=== PATIENT | female | born 1985 ===

== ENCOUNTER 2016-06-24 11:28 | Emergency (ER) | payer MEDICAID, OTHER ==
[2016-06-24 11:51] VITALS: BMI 39.3
[2016-06-24 11:57] VITALS: BP 119/73; PULSE 73; RESP 16; TEMP 98.1; O2SAT 98
--- NOTE | 2016-06-24 12:49 | ED PDOC ---
Arrival/HPI - General Chief Complaint: ENT Problem Time Seen by Provider: 06/24/16 12:46 Historian: Patient - History of Present Illness Narrative History of Present Illness (Text): 06/24/16 13:48 30-year-old female presents today with a 3 to four-day history of sore throat. Patient states she's noticed a white thing on her right tonsil. She is complaining of frontal sinus headache. Patient states that she had taken some antibiotics at home that she had left over. But stopped taking them after 3 days. Patient complaining of subjective fevers at home. Patient states she was taking Motrin for pain last dose was Advil yesterday. No medications taken today for pain or fever. Patient denies vomiting or diarrhea. Denies abdominal pain. Denies cough. Complaining of nasal congestion. Denies ear pain. pt states her son is sick as well. Past Medical History - Provider Review Nursing Documentation Reviewed: Yes - Travel History Have you recently traveled outside [place] w/in the past 3 mons?: No - Tetanus Immunization Tetanus Immunization: Unknown - Cardiac Hx Cardiac Disorders: No - Pulmonary Hx Respiratory Disorders: No - Neurological Hx Neurological Disorder: No - HEENT Hx HEENT Disorder: No - Renal Hx Renal Disorder: No - Endocrine/Metabolic Hx Endocrine Disorders: Yes Hx Hypothyroidism: Yes - Hematological/Oncological Hx Blood Disorders: No - Integumentary Hx Dermatological Disorder: No - Musculoskeletal/Rheumatological Hx Musculoskeletal Disorders: No - Gastrointestinal Hx Gastrointestinal Disorders: No - Genitourinary/Gynecological Hx Genitourinary Disorders: No - Psychiatric Hx Psychophysiologic Disorder: No Hx Substance Use: No Family/Social History - Physician Review Nursing Documentation Reviewed: Yes Family/Social History: Unknown Family HX Smoking Status: Never Smoked Hx Alcohol Use: No Hx Substance Use: No Allergies/Home Meds Allergies/Adverse Reactions: Allergies No Known Allergies Allergy (Verified 06/24/16 11:51) Review of Systems - Review of Systems Constitutional: Fevers. absent: Fatigue ENT: Sore Throat, Sinus Congestion Respiratory: absent: SOB, Cough Cardiovascular: absent: Chest Pain, Palpitations Gastrointestinal: absent: Abdominal Pain, Diarrhea, Vomiting Musculoskeletal: absent: Arthralgias Neurological: Headache. absent: Dizziness Physical Exam Vital Signs Reviewed: Yes Vital Signs Temp Pulse Resp BP Pulse Ox 06/24/16 11:57 98.1 F 73 16 119/73 98 Temperature: Afebrile Blood Pressure: Normal Pulse: Regular Respiratory Rate: Normal Appearance: Positive for: Well-Appearing, Non-Toxic, Comfortable Pain Distress: None Mental Status: Positive for: Alert and Oriented X 3 - Systems Exam Head: Present: Atraumatic Conjunctiva: Present: Normal Ears: Present: Normal, NORMAL TM. No: Erythema Mouth: Present: Moist Mucous Membranes Pharnyx: Present: ERYTHEMA, EXUDATE. No: TONSILS ENLARGED, Peritonsilar Swelling, Uvular Deviation, Muffled/Hoarse Voice, Strider, Soft Palate/Uvular Edema Nose (External): Present: Atraumatic Nose (Internal): Present: Normal Inspection Neck: Present: Normal Range of Motion, Lymphadenopathy, Trachea Midline Respiratory/Chest: Present: Clear to Auscultation, Good Air Exchange. No: Respiratory Distress, Accessory Muscle Use Cardiovascular: Present: Regular Rate and Rhythm, Normal S1, S2. No: Murmurs Abdomen: No: Tenderness Neurological: Present: GCS=15 Skin: Present: Warm, Dry, Normal Color. No: Rashes Psychiatric: Present: Alert Medical Decision Making ED Course and Treatment: 06/24/16 13:50 Patient is nontoxic well appearing in no distress. Vital signs are stable Tolerating p.o. fluids and solids motrin amoxicillin po Patient reassessment: Patient feeling better after medications, vital signs stable. Moist mucous membranes. I advised follow up with primary care physician within the next 2 days, advised to increase fluids take medications as prescribed and return if symptoms worsen persist or if new symptoms develop Patient verbalizes understanding of discharge instructions and need for immediate followup. all aspects of this case were discussed the attending of record. IMPRESSION; pharyngitis Motrin every 6 hours as needed for pain/fever reduction Increase fluids amoxicillin 3 times daily x10 days Follow up primary care physician within the next 2 days Saltwater gargles, throat lozenges Return if symptoms worsen persist or if the symptoms develop - Medication Orders Current Medication Orders: Discontinued Medications Amoxicillin (Amoxil 500 Mg Cap) 500 mg PO STAT STA PRN Reason: Protocol Stop: 06/24/16 12:47 Last Admin: 06/24/16 12:57 Dose: 500 MG Ibuprofen (Motrin Tab) 600 mg PO STAT STA Stop: 06/24/16 12:47 Last Admin: 06/24/16 12:57 Dose: 600 MG MAR Pain/Vitals Document 06/24/16 12:57 SE (Rec: 06/24/16 12:57 SE [id number]) Pain Reassessment Is This A Pain ReAssessment? No Sleep Is patient sleeping during reassessment? No Disposition/Present on Arrival - Present on Arrival Any Indicators Present on Arrival: No History of DVT/PE: No History of Uncontrolled Diabetes: No Urinary Catheter: No History of Decub. Ulcer: No History Surgical Site Infection Following: None - Disposition Have Diagnosis and Disposition been Completed?: Yes Diagnosis: Pharyngitis Disposition: HOME/ ROUTINE Disposition Time: 12:49 Patient Plan: Discharge Patient Problems: Current Active Problems Problem Status Diagnosed Pharyngitis Acute Condition: GOOD Discharge Instructions (ExitCare): Pharyngitis (ED) Print Language: CHINESE Additional Instructions: Motrin every 6 hours as needed for pain/fever reduction Increase fluids Amoxicillin 3 times daily 10 days Follow up with ENT specialist within the next 2 days. Follow up primary care physician within the next 2 days Saltwater gargles, throat lozenges Return if symptoms worsen persist or if the symptoms develop Prescriptions: Amoxicillin 500 mg PO TID #30 tab Ibuprofen [Motrin] 600 mg PO Q6H PRN #20 tab PRN Reason: pain/fever reduction Referrals: Tito Rocha [Primary Care Provider] - Follow up with primary Prateek Thompson DO [Staff Provider] - Follow up with primary Forms: WORK NOTE
== END 2016-06-24 14:02 | disposition home or self-care (01) ==
LOC: ED 11:28
DX: J02.9 Acute pharyngitis, unspecified (principal)

== ENCOUNTER 2017-03-20 08:27 | Emergency (ER) | payer MEDICAID, OTHER ==
[2017-03-20 08:38] VITALS: RESP 18; BMI 42.0
[2017-03-20] MEDS ORDERED: Oxycodone/Acetaminophen 5/325 mg Tab PO STA ×2 (08:47→12:14)
--- NOTE | 2017-03-20 11:47 | ED PDOC ---
Arrival/HPI - General Chief Complaint: Abnormal Skin Integrity Time Seen by Provider: 03/20/17 08:47 Historian: Patient - History of Present Illness Narrative History of Present Illness (Text): 31 y/o woman w/ no significant pmhx presents c/o 3-4 days of worseiing rubor/ dolor/calor/tumor to inferior aspect of left labia majora, denying systemic symptoms, although ambulation worsens the pain. 03/20/17 11:44 Time/Duration: < week Symptom Onset: Gradual Past Medical History - Provider Review Nursing Documentation Reviewed: Yes - Infectious Disease Hx of Infectious Diseases: None - Tetanus Immunization Tetanus Immunization: Unknown - Cardiac Hx Cardiac Disorders: No - Pulmonary Hx Respiratory Disorders: No - Neurological Hx Neurological Disorder: No - HEENT Hx HEENT Disorder: No - Renal Hx Renal Disorder: No - Endocrine/Metabolic Hx Endocrine Disorders: Yes Hx Hypothyroidism: Yes - Hematological/Oncological Hx Blood Disorders: No - Integumentary Hx Dermatological Disorder: No - Musculoskeletal/Rheumatological Hx Musculoskeletal Disorders: No - Gastrointestinal Hx Gastrointestinal Disorders: No - Genitourinary/Gynecological Hx Genitourinary Disorders: No - Psychiatric Hx Psychophysiologic Disorder: No Hx Substance Use: No - Anesthesia Hx Anesthesia Reactions: No Hx Malignant Hyperthermia: No Family/Social History - Physician Review Nursing Documentation Reviewed: Yes Family/Social History: No Known Family HX Smoking Status: Never Smoked Hx Alcohol Use: No Hx Substance Use: No Allergies/Home Meds Allergies/Adverse Reactions: Allergies No Known Allergies Allergy (Verified 06/24/16 11:51) Review of Systems - Physician Review All systems were reviewed & negative as marked: Yes - Review of Systems Constitutional: Normal Eyes: Normal ENT: Normal Respiratory: Normal Cardiovascular: Normal Gastrointestinal: Normal Genitourinary Female: Other (aforementioned ) Musculoskeletal: Normal Skin: Normal Neurological: Normal Endocrine: Normal Hemo/Lymphatic: Normal Psychiatric: Normal Physical Exam Vital Signs Reviewed: Yes Vital Signs Temp Pulse Resp BP Pulse Ox 03/20/17 08:35 98.0 F 90 18 129/51 L 99 Temperature: Afebrile Blood Pressure: Normal Pulse: Regular Respiratory Rate: Normal Appearance: Positive for: Well-Appearing, Non-Toxic, Uncomfortable Pain Distress: None Mental Status: Positive for: Alert and Oriented X 3 - Systems Exam Head: Present: Atraumatic, Normocephalic Pupils: Present: PERRL Extroacular Muscles: Present: EOMI Conjunctiva: Present: Normal Mouth: Present: Moist Mucous Membranes Pharnyx: Present: Normal Nose (External): Present: Atraumatic Nose (Internal): Present: Normal Inspection Neck: Present: Normal Range of Motion Respiratory/Chest: Present: Clear to Auscultation, Good Air Exchange. No: Respiratory Distress, Accessory Muscle Use Cardiovascular: Present: Regular Rate and Rhythm, Normal S1, S2. No: Murmurs Abdomen: Present: Normal Bowel Sounds. No: Tenderness, Distention, Peritoneal Signs Genitourinary/Pelvic Exam: Present: Vaginal Lesions, Other (left inferior labia majoral rubor/relative tumor approxiamtely 3x3 cm swelling, w/ mucosal aspect fluctuance, + 3 cm extension along mucosal aspect of labia minora intravaginally , accompniaed by [id number] kevin Muñoz. ) Back: Present: Normal Inspection Upper Extremity: Present: Normal Inspection. No: Cyanosis, Edema Lower Extremity: Present: Normal Inspection. No: Edema Neurological: Present: GCS=15, CN II-XII Intact, Speech Normal Skin: Present: Warm, Dry, Normal Color. No: Rashes Psychiatric: Present: Alert, Oriented x 3, Normal Insight, Normal Concentration Medical Decision Making ED Course and Treatment: 31 y/o woman p/w left lower labial bartholin's abscess analgesia local aesthesia incision and drainage of bartholin's abscess packing w/ gennis Russel ring (word catheter unavailable and less comfortable. 03/20/17 11:49 03/20/17 11:51 S/P infiltration w/ 1% lidocaine w/ epinpehrine, approximately 7 ml , the left inferolabia majora ws incised w/ 1.5 cm lateral incision w/ release of 4-5 mL snguinoprulent discharge w/ foul smell. Area was blunt dissected to break up any loculations, and then the the cavity was flushed w/ 30-40 mL sterile saline until effluent was clean blood tinged saline. Subsequently another 0.5 to 1.0 cm lateral incision was made further intravaginally along the extent of the labia minora, and the gennis Russel ring was placed betwee the two incisions and tied knotted. Pt tolerated procedure well , without complication, neurological exams remained nonfocal and ambulation was much more comfortable according to patient s/p the procedure. - Lab Interpretations Lab Results: Lab Results 03/20/17 09:45: Urine HCG, Qual Negative - Medication Orders Current Medication Orders: Doxycycline Hyclate (Doryx) 100 mg PO STAT STA PRN Reason: Protocol Stop: 03/20/17 11:43 Ibuprofen (Motrin Tab) 600 mg PO STAT STA Stop: 03/20/17 11:44 Metronidazole (Flagyl) 500 mg PO STAT STA PRN Reason: Protocol Stop: 03/20/17 11:43 Discontinued Medications Oxycodone/Acetaminophen (Percocet 5/325 Mg Tab) 1 tab PO STAT STA Stop: 03/20/17 08:48 Last Admin: 03/20/17 09:38 Dose: 1 tab MAR Pain Assessment Document 03/20/17 09:38 SRE (Rec: 03/20/17 09:40 [id number]) Pain Reassessment Is this a pain reassessment? Yes Sleep Is patient sleeping during reassessment? No Presence of Pain Presence of Pain Yes Pain Scale Used Pain Scale Used Numeric Location Left, Right or Bilateral Left Description Description Constant Disposition/Present on Arrival - Present on Arrival Any Indicators Present on Arrival: No History of DVT/PE: No History of Uncontrolled Diabetes: No Urinary Catheter: No History of Decub. Ulcer: No History Surgical Site Infection Following: None - Disposition Have Diagnosis and Disposition been Completed?: Yes Diagnosis: Abscess of Bartholin's gland Disposition: HOME/ ROUTINE Disposition Time: 11:57 Patient Plan: Discharge Condition: IMPROVED Discharge Instructions (ExitCare): Bartholin Cyst (GEN), Incision and Drainage (ED) Print Language: NICARAGUAN Additional Instructions: Practique "sitz" lavamientos en el curato de gato en caliente tepid y jabon, 15- 20 minutos 2-3 x/day para facilitar mas drainage. Si tu desarolla 1) Dolor sin control 2) rojando aumentando o draianage de mucho mucho pus. 3) fever regrese inmediatamente para mas evaluaciion. Regrese in 5-7 sharma para rmover mccarty Russel anejo. Prescriptions: Doxycycline Monohydrate 100 mg PO BID #14 tablet Ibuprofen [Motrin Tab] 600 mg PO Q6 PRN #40 tab PRN Reason: pain metroNIDAZOLE [Flagyl] 500 mg PO TID #21 tab Referrals: Tito Rocha [Primary Care Provider] - Follow up with primary
[2017-03-20 12:42] VITALS: O2SAT 96
[2017-03-20] MEDS ORDERED: Sodium Chloride 0.9% 1,000 ML IV STA (13:00)
[2017-03-20 15:07] VITALS: PULSE 111
[2017-03-20 15:25] VITALS: BP 98/49; TEMP 98.8
== END 2017-03-20 17:39 | disposition home or self-care (01) ==
LOC: ED 08:27
DX: N75.1 Abscess of Bartholin's gland (principal)
CPT/HCPCS: 56420; 84703; 87070; 96361; 96374; 96375; 99284; J1885; J2405; J7040

== ENCOUNTER 2017-03-24 10:31 | Emergency (ER) | payer MEDICAID ==
[2017-03-24 10:32] VITALS: BMI 42.0
[2017-03-24 10:51] VITALS: TEMP 99.1; O2SAT 98
--- NOTE | 2017-03-24 11:18 | ED PDOC ---
Arrival/HPI - General Chief Complaint: Female Genitourinary Time Seen by Provider: 03/24/17 11:14 Historian: Patient - History of Present Illness Narrative History of Present Illness (Text): 03/24/17 11:15 31yo morbidly obese female with no Past medical history who present with complaint of vaginal abscess x one week. Patient was seen here for on 03/20/17 for vaginal abscess that was drained. She states she developed abscess on the left sided of her inner vagina. states she is still on antibiotics. Denies fever , chills, any otehr complaint. she was referred to her [employer], but have not gone. Past Medical History - Provider Review Nursing Documentation Reviewed: Yes - Infectious Disease Hx of Infectious Diseases: None - Tetanus Immunization Tetanus Immunization: Unknown - Reproductive Menopause: No - Cardiac Hx Cardiac Disorders: No - Pulmonary Hx Respiratory Disorders: No - Neurological Hx Neurological Disorder: No - HEENT Hx HEENT Disorder: No - Renal Hx Renal Disorder: No - Endocrine/Metabolic Hx Endocrine Disorders: Yes Hx Hypothyroidism: Yes - Hematological/Oncological Hx Blood Disorders: No - Integumentary Hx Dermatological Disorder: No - Musculoskeletal/Rheumatological Hx Musculoskeletal Disorders: No - Gastrointestinal Hx Gastrointestinal Disorders: No - Genitourinary/Gynecological Hx Genitourinary Disorders: No - Psychiatric Hx Psychophysiologic Disorder: No Hx Substance Use: No - Anesthesia Hx Anesthesia Reactions: No Hx Malignant Hyperthermia: No Family/Social History - Physician Review Nursing Documentation Reviewed: Yes Family/Social History: Unknown Family HX Smoking Status: Never Smoked Hx Alcohol Use: No Hx Substance Use: No Allergies/Home Meds Allergies/Adverse Reactions: Allergies No Known Allergies Allergy (Verified 06/24/16 11:51) Review of Systems - Physician Review All systems were reviewed & negative as marked: Yes - Review of Systems Constitutional: Normal Eyes: Normal ENT: Normal Respiratory: Normal Cardiovascular: Normal Gastrointestinal: Normal Genitourinary Female: Normal Musculoskeletal: Normal Skin: Abscess Neurological: Normal Endocrine: Normal Hemo/Lymphatic: Normal Psychiatric: Normal Physical Exam Vital Signs Reviewed: Yes Vital Signs Temp Pulse Resp BP Pulse Ox 03/24/17 11:37 94 H 18 111/75 98 03/24/17 10:48 99.1 F 101 H 16 113/80 98 Temperature: Afebrile Blood Pressure: Normal Pulse: Regular Respiratory Rate: Normal Appearance: Positive for: Well-Appearing, Non-Toxic, Comfortable Pain Distress: None Mental Status: Positive for: Alert and Oriented X 3 - Systems Exam Head: Present: Atraumatic, Normocephalic Pupils: Present: PERRL Extroacular Muscles: Present: EOMI Conjunctiva: Present: Normal Mouth: Present: Moist Mucous Membranes Neck: Present: Normal Range of Motion Respiratory/Chest: Present: Clear to Auscultation, Good Air Exchange. No: Respiratory Distress, Accessory Muscle Use Cardiovascular: Present: Regular Rate and Rhythm, Normal S1, S2. No: Murmurs Abdomen: Present: Normal Bowel Sounds. No: Tenderness, Distention, Peritoneal Signs Back: Present: Normal Inspection Upper Extremity: Present: Normal Inspection. No: Cyanosis, Edema Lower Extremity: Present: Normal Inspection. No: Edema Neurological: Present: GCS=15, CN II-XII Intact, Speech Normal Skin: Present: Warm, Dry, Normal Color, Abscess (approximately 2 x 1cm area of induration noted on left sided inner vaginal wall). No: Rashes Psychiatric: Present: Alert, Oriented x 3, Normal Insight, Normal Concentration Medical Decision Making - Medication Orders Current Medication Orders: Discontinued Medications Tramadol HCl (Ultram) 50 mg PO STAT STA Stop: 03/24/17 11:21 Disposition/Present on Arrival - Present on Arrival Any Indicators Present on Arrival: No History of DVT/PE: No History of Uncontrolled Diabetes: No Urinary Catheter: No History of Decub. Ulcer: No History Surgical Site Infection Following: None - Disposition Have Diagnosis and Disposition been Completed?: Yes Diagnosis: Abscess of vagina Disposition: HOME/ ROUTINE Disposition Time: 11:20 Patient Plan: Discharge Condition: STABLE Discharge Instructions (ExitCare): Abscess (ED) Additional Instructions: Follow up with your [employer] Do a warm water sitz baths Return to Emergency department for any new symptoms Prescriptions: traMADol [Ultram] 50 mg PO TID #10 tab Referrals: Tito Rocha [Primary Care Provider] - Follow up with primary Gee Serrano MD [Staff Provider] - Follow up with primary Forms: [employer] (Dutch)
[2017-03-24 11:37] VITALS: BP 111/75; PULSE 94; RESP 18
== END 2017-03-24 11:40 | disposition home or self-care (01) ==
LOC: ED 10:31
DX: N76.0 Acute vaginitis (principal)

== ENCOUNTER 2017-09-04 15:38 | Emergency (ER) | payer SELFPAY ==
[2017-09-04 16:03] VITALS: RESP 19; BMI 43.9
--- NOTE | 2017-09-04 16:57 | ED PDOC ---
Arrival/HPI - General Chief Complaint: Back Pain Time Seen by Provider: 09/04/17 16:48 Historian: Patient - History of Present Illness Narrative History of Present Illness (Text): 09/04/17 16:59 Pt is a 31 yr old female with PMH of ovarian cysts who complains of LBP rated 7/10 for the past 5 days. Pt states that she has pain that starts in the lumbar area and radiates to bilateral LE. Pt denies fever, , change in bladder or bowel function, altered sensation in the groin area, trauma or any other complaints. Time/Duration: 1 week Symptom Onset: Gradual Symptom Course: Unchanged Quality: Pressure Severity Level: 5 Activities at Onset: Rest Past Medical History - Provider Review Nursing Documentation Reviewed: Yes - Travel History Have you recently traveled outside [place] w/in the past 3 mons?: No - Past History Past History: No Previous - Infectious Disease Hx of Infectious Diseases: None - Tetanus Immunization Tetanus Immunization: Unknown - Cardiac Hx Cardiac Disorders: No - Pulmonary Hx Respiratory Disorders: No - Neurological Hx Neurological Disorder: No - HEENT Hx HEENT Disorder: No - Renal Hx Renal Disorder: No - Endocrine/Metabolic Hx Endocrine Disorders: Yes Hx Hypothyroidism: Yes - Hematological/Oncological Hx Blood Disorders: No - Integumentary Hx Dermatological Disorder: No - Musculoskeletal/Rheumatological Hx Musculoskeletal Disorders: No - Gastrointestinal Hx Gastrointestinal Disorders: No - Genitourinary/Gynecological Hx Genitourinary Disorders: No - Psychiatric Hx Psychophysiologic Disorder: No Hx Substance Use: No - Anesthesia Hx Anesthesia Reactions: No Hx Malignant Hyperthermia: No Family/Social History - Physician Review Nursing Documentation Reviewed: Yes Family/Social History: Unknown Family HX Smoking Status: Never Smoked Hx Alcohol Use: No Hx Substance Use: No Allergies/Home Meds Allergies/Adverse Reactions: Allergies No Known Allergies Allergy (Verified 09/04/17 15:53) Review of Systems - Review of Systems Constitutional: Normal Eyes: Normal ENT: Normal Respiratory: Normal Cardiovascular: Normal Gastrointestinal: Normal Genitourinary Female: Normal Musculoskeletal: Normal, Back Pain (low back with bilateral referral into the legs) Skin: Normal Neurological: Normal. absent: Headache, Dizziness, Gait Changes Endocrine: Normal Hemo/Lymphatic: Normal Psychiatric: Normal Physical Exam Vital Signs Reviewed: Yes Vital Signs Temp Pulse Resp BP Pulse Ox 09/04/17 18:44 98.4 F 84 120/70 97 09/04/17 15:54 98.9 F 88 19 113/76 98 09/04/17 15:38 98.9 F 88 19 113/76 98 Temperature: Afebrile Blood Pressure: Normal Pulse: Regular Respiratory Rate: Normal Appearance: Positive for: Well-Appearing, Non-Toxic, Comfortable Pain Distress: Moderate Mental Status: Positive for: Alert and Oriented X 3 - Systems Exam Head: Present: Atraumatic, Normocephalic Pupils: Present: PERRL Extroacular Muscles: Present: EOMI Conjunctiva: Present: Normal Mouth: Present: Moist Mucous Membranes Neck: Present: Normal Range of Motion Respiratory/Chest: Present: Clear to Auscultation, Good Air Exchange. No: Respiratory Distress, Accessory Muscle Use Cardiovascular: Present: Regular Rate and Rhythm, Normal S1, S2. No: Murmurs Abdomen: Present: Normal Bowel Sounds. No: Tenderness, Distention, Peritoneal Signs Back: Present: Normal Inspection, Midline Tenderness, Paraspinal Tenderness ( lumbar and SIJ pain on palpation ), Pain with Leg Raise (Positive SLR bilateral) . No: CVA Tenderness Upper Extremity: Present: Normal Inspection. No: Cyanosis, Edema Lower Extremity: Present: Normal Inspection, NORMAL PULSES, Normal ROM, Neurovascularly Intact, Capillary Refill < 2 s. No: Edema, CALF TENDERNESS, Cyanosis, Domingo's Sign, Tenderness, Swelling Neurological: Present: GCS=15, CN II-XII Intact, Speech Normal, Motor Func Grossly Intact, Normal Sensory Function, Norm Deep Tendon Reflexes, Gait Normal Skin: Present: Warm, Dry, Normal Color. No: Rashes Psychiatric: Present: Alert, Oriented x 3, Normal Insight, Normal Concentration Medical Decision Making ED Course and Treatment: 09/04/17 17:02 Impression Pt is a 31 yr old female with PMH of low back pain who complains of lumbar pain that radiates down both LE and rated 7/10 for the past 5 days. On exam, morbid obesity, (+)SLR at 60 deg and point tenderness to bilateral SI jts with referral of pain into hips b/l Ddx: Sacroilitis, chronic lumbago, prolapsed lumbar disc Plan pain management Labs, UA assess and dispo Progress Note Pt was given Toradol IM 60 and Robaxin 500mg UA reveals negative findings Pt experienced immediate relief and advised to have MRI done and follow up with PMD Should receive PT as well Medications were explained to pt on proper use and cautions VSS on d/c - Lab Interpretations Lab Results: Lab Results 09/04/17 16:35: Urine HCG, Qual Negative 09/04/17 16:35: Urine Color Yellow, Urine Appearance Sl cloudy, Urine pH 6.0, Ur Specific [place] 1.025, Urine Protein Negative, Urine Glucose (UA) Negative, Urine Ketones Negative, Urine Blood Small H, Urine Nitrate Negative, Urine Bilirubin Negative, Urine Urobilinogen 0.2, Ur Leukocyte Esterase Negative, Urine RBC 1 - 3, Urine WBC 0 - 2, Ur Epithelial Cells 3 - 4 I have reviewed the lab results: Yes (Neg hCG) Interpretation: All labs normal - Medication Orders Current Medication Orders: Discontinued Medications Ketorolac Tromethamine (Toradol) 60 mg IM STAT STA Stop: 09/04/17 17:54 Last Admin: 09/04/17 18:10 Dose: 60 mg MAR Pain Assessment Document 09/04/17 18:10 SRE (Rec: 09/04/17 18:10 SRE [id number]) Pain Reassessment Is this a pain reassessment? Yes IM Administration Charges Document 09/04/17 18:10 SRE (Rec: 09/04/17 18:10 SRE [id number]) Charges for Administration # of IM Administrations 1 Methocarbamol (Robaxin) 500 mg PO QID JACKELIN Methocarbamol (Robaxin) 500 mg PO STAT STA Stop: 09/04/17 17:58 Last Admin: 09/04/17 18:11 Dose: 500 mg Disposition/Present on Arrival - Present on Arrival Any Indicators Present on Arrival: Yes History of DVT/PE: No History of Uncontrolled Diabetes: No Urinary Catheter: No History of Decub. Ulcer: No History Surgical Site Infection Following: None - Disposition Have Diagnosis and Disposition been Completed?: Yes Diagnosis: Low back pain Disposition: HOME/ ROUTINE Disposition Time: 18:35 Patient Plan: Discharge Condition: GOOD Discharge Instructions (ExitCare): Low Back Pain in Adults Additional Instructions: Amy, thank you for letting us take care of you today. Your provider was DELAL Arias. You were treated for Low Back Pain. The emergency medical care you received today was directed at your acute symptoms. If you were prescribed any medication, please fill it and take as directed. It may take several days for your symptoms to resolve. Return to the Emergency Department if your symptoms worsen, do not improve, or if you have any other problems. Please take the medication as directed and use caution and care as the medications may make you drowsy. You may require an MRI and Physical Therapy for your low back pain Please contact your doctor or call one of the physicians/clinics you have been referred to that are listed on the Patient Visit Information form that is included in your discharge packet. Bring any paperwork you were given at discharge with you along with any medications you are taking to your follow up visit. Our treatment cannot replace ongoing medical care by a primary care provider (PCP) outside of the emergency department. Thank you for allowing the [facility] team to be part of your care today. If you had a blood, urine, or wound culture: It will take several days for the results, if any change in treatment is needed we will contact you. Prescriptions: Cyclobenzaprine [Flexeril] 5 mg PO Q12 7 Days #14 tab Ibuprofen [Motrin Tab] 600 mg PO Q6 #20 tab Referrals: Tito Rocha [Primary Care Provider] - Follow up with primary Forms: [employer] (French), WORK NOTE
[2017-09-04 17:15] LABS: URINE BILIRUBIN NEGATIVE (NEGATIVE); URINE BLOOD SMALL (NEGATIVE); URINE GLUCOSE (UA) NEGATIVE (NEGATIVE); URINE LEUKOCYTE ESTERASE NEGATIVE Leu/uL (NEGATIVE); URINE PROTEIN NEGATIVE mg/dL (<30 mg/dL); URINE UROBILINOGEN 0.2 E.U./dL (<1 E.U./dL)
[2017-09-04 17:21] LABS: URINE APPEARANCE SL CLOUDY (CLEAR); URINE COLOR YELLOW (YELLOW)
[2017-09-04 17:45] LABS: URINE WBC 0 - 2 /hpf (0-6)
[2017-09-04] MEDS ORDERED: Methocarbamol 500 MG Tab PO STA (17:57)
[2017-09-04] MEDS ORDERED: Methocarbamol 500 MG Tab PO SCH (18:00)
[2017-09-04 18:45] VITALS: BP 120/70; PULSE 84; TEMP 98.4; O2SAT 97
== END 2017-09-04 18:44 | disposition home or self-care (01) ==
LOC: ED 15:38
DX: M54.5 Low back pain (principal)
CPT/HCPCS: 81001; 84703; 96372; 99283; J1885